=== PATIENT | male | born 1950 | race Caucasian/White ===

== ENCOUNTER 2016-07-27 15:58 | Emergency (ER) | payer OTHER ==
[2016-07-27 16:02] VITALS: O2SAT 96
[2016-07-27] MEDS ORDERED: HYDROmorphONE/DILAUDID 1 MG/ML SYR IVP ONE ×2 (16:30→17:15)
[2016-07-27 16:47] LABS: % IMMATURE GRANULYOCYTES 0.6 % (0.0-1.1); ABSOLUTE IMMATURE GRANULOCYTES 0.05 10^3/uL (0.00-0.10); ADD DIFF? NO; ADD MORPH? NO; ADD SCAN? NO; ATYPICAL LYMPHOCYTE FLAG 0 (0-99); FRAGMENT RBC FLAG 0 (0-99); HEMATOCRIT 44.9 % (40.0-51.0); HEMOGLOBIN 16.2 g/dL (13.7-17.5); LEFT SHIFT FLG 0 (0-99); LIPEMIA HEMOLYSIS FLAG 90 (0-99); MEAN CELL HEMOGLOBIN 29.6 pg (27.9-34.1); MEAN CELL HEMOGLOBIN CONCENTR. 36.1 g/dL (32.4-36.7); MEAN CELL VOLUME 81.9 fL (81.5-99.8); MEAN PLATELET VOLUME 10.3 fL (8.7-11.7); PLATELET CLUMPS FLAG 10 (0-99); PLATELET COUNT 210 10^3/uL (150-400); RED BLOOD CELL COUNT 5.48 10^6/uL (4.40-6.38); RED CELL DISTRIBUTION WIDTH 12.9 % (11.5-15.2)
[2016-07-27 16:54] LABS: ANION GAP 14 mEq/L (8-16); CALCIUM 10.2 mg/dL (8.5-10.4); CARBON DIOXIDE 21 mEq/l (22-31); CHLORIDE 100 mEq/L (97-110); CREATININE 0.8 mg/dL (0.7-1.3); GLOMERULAR FILTRATION RATE > 60; GLUCOSE 119 mg/dL (70-100); POTASSIUM 3.5 mEq/L (3.5-5.2); SODIUM 135 mEq/L (134-144)
[2016-07-27] MEDS ORDERED: KETOROLAC 15 MG/1 ML SDV IVP ONE (17:15)
[2016-07-27] MEDS ORDERED: DIAZEPAM 10 MG/2 ML SYR IVP ONE (17:59)
--- NOTE | 2016-07-27 19:11 | EDPHY ---
H & P Stated Complaint: l hip pain - Personal History Current Tetanus/Diphtheria Vaccine: Yes - Medical/Surgical History Hx Asthma: No Hx Chronic Respiratory Disease: No Hx Diabetes: No Hx Cardiac Disease: Yes Hx Renal Disease: No Hx Cirrhosis: No Hx Alcoholism: No Hx HIV/AIDS: No Hx Splenectomy or Spleen Trauma: No Other PMH: htn/quad byp[ass - Social History Smoking Status: Never smoked Time Seen by Provider: 07/27/16 16:16 HPI/ROS: Chief complaint: Left buttock pain History of present illness: This is a 66-year-old male who presents to the emergency department for left buttock pain. Patient reports the onset of symptoms over the last 1-2 days. Symptoms have been worsening. He initially treated with ibuprofen which helped but now pain is worsening. He denies specific precipitating factors such as trauma. He denies other associated signs or symptoms including no fevers, no abdominal pain, no nausea, vomiting or diarrhea, no urinary symptoms, no abnormal coolness or no paresthesias in the leg. Patient is concerned this could be related to his statin use. Review of systems: A 10 point review of systems was obtained and other than described above was negative (Berto Smith) - Physical Exam Exam: General Appearance: Alert, nontoxic. Eyes: Pupils equal and round no pallor or injection. ENT, Mouth: Mucous membranes moist. Respiratory: There are no retractions, lungs are clear to auscultation. Cardiovascular: Regular rate and rhythm. Posterior tibialis pulses 2+ bilaterally. Dorsalis pedis pulses 1+ on the left, 2+ on the right. Gastrointestinal: Abdomen is soft and nontender, no masses, bowel sounds normal. Neurological: Alert and oriented x4. Strength and sensation intact and symmetrical. Straight leg raise test is negative bilaterally. Patient ambulating well. Skin: Warm and dry, no rashes. Musculoskeletal: Neck is supple nontender. Spine is nontender to palpation along its entire length. The back is nontender. There is tenderness in the left buttock region in the region of the sciatic notch. I can reproduce his pain. Extremities are symmetrical, full range of motion. Psychiatric: Patient is oriented X 3, there is no agitation. (Berto Smith) Constitutional: Initial Vital Signs Temperature (C) 36.3 C 07/27/16 15:59 Heart Rate 99 07/27/16 15:59 Respiratory Rate 18 07/27/16 15:59 Blood Pressure 174/114 H 07/27/16 15:59 O2 Sat (%) 96 07/27/16 15:59 O2 Delivery Mode Room Air Allergies/Adverse Reactions: No Known Allergies Allergy (Verified 07/27/16 15:58) Home Medications: Medication Instructions Recorded Ambien CR 06/08/09 Aspirin 81mg 06/08/09 CAPTOPRIL 06/08/09 Hydrochlorothiazide 06/08/09 Lipitor 20 mg 06/08/09 Norvasc 5mg 06/08/09 Pepcid 06/08/09 Potassium Chloride 06/08/09 Terazosin Hcl 06/08/09 diphenhydrAMINE 06/08/09 Hydrocodone/APAP 5 [[place] 1 tab PO Q6H #10 tab 07/27/16 5/325 (*)] Medical Decision Making ED Course/Re-evaluation: Patient is discussed with my secondary supervising physician Dr. Zeinab Watkins. Patient presents to the emergency department for left buttock pain. Patient is nontoxic. His left leg is neurovascularly intact. Ultimately I believe this is a musculoskeletal issue. He is symptomatically treated with improvement of symptoms and is able to ambulate. Patient will be discharged home. Home care is discussed. He is asked to follow up with his primary care doctor for recheck. Strict return precautions are given. Patient voiced understanding and agreement with plan. (Berto Smith) The patient was evaluated and managed by the physician civil engineering assistant. I have reviewed this chart and I agree with the findings and plan of care as documented , as indicated by my signature. I am the secondary supervising physician. ( Zeinab Watkins) Differential Diagnosis: Included but not limited to muscle spasms, sciatica, lumbar sprain or strain, herniated intervertebral disc (Berto Smith) - Data Points Laboratory Results: Laboratory Results 07/27/16 16:10 07/27/16 16:10 Medications Given: Discontinued Medications Diazepam (Valium Injection) 5 mg IVP EDNOW ONE Stop: 07/27/16 18:00 Last Admin: 07/27/16 18:30 Dose: 5 mg Hydromorphone HCl (Dilaudid) 0.5 mg IVP EDNOW ONE Stop: 07/27/16 16:31 Last Admin: 07/27/16 16:50 Dose: 0.5 mg Hydromorphone HCl (Dilaudid) 0.5 mg IVP EDNOW ONE Stop: 07/27/16 17:16 Last Admin: 07/27/16 17:30 Dose: 0.5 mg Ketorolac Tromethamine (Toradol) 15 mg IVP EDNOW ONE Stop: 07/27/16 17:16 Last Admin: 07/27/16 17:30 Dose: 15 mg Departure - Departure Disposition: Home, Routine, Self-Care Clinical Impression: Low back pain Qualifiers: Chronicity: acute Back pain laterality: left Sciatica presence: with sciatica Sciatica laterality: sciatica of left side Qualified Code(s): M54.42 - Lumbago with sciatica, left side Condition: Good Instructions: Back Pain (ED) Additional Instructions: Follow-up with her primary care doctor in 1-2 days for recheck In regards to pain control see the following: Use ibuprofen [600] mg [3] times a day for the next 1-2 days for pain In addition You have been prescribed [[place]] for pain. [[place]] contains Tylenol, do not take extra Tylenol/acetaminophen/Apap with it. It is sedating. If symptoms worsen or new symptoms develop return to the emergency room for recheck Referrals: Tha Hood MD [Primary Care Provider] - As per Instructions Prescriptions: Hydrocodone/APAP 5/325 [[place] 5/325 (*)] 1 tab PO Q6H #10 tab
[2016-07-27 19:30] VITALS: BP 120/84; PULSE 84; RESP 16; TEMP 98.4
== END 2016-07-27 19:29 | disposition home or self-care (01) ==
DX: M54.42 Lumbago with sciatica, left side (principal); I10 Essential (primary) hypertension; Z79.82 Long term (current) use of aspirin
CPT/HCPCS: 96374; 96375; 96376; 99284; J1170; J1885

== ENCOUNTER → 2018-03-13 | Outpatient (CLI) | payer OTHER | LOC: BHFA 10:00 | PROVIDERS: ATTEND Internal Medicine Interventional Cardiology | DX: I25.10 Atherosclerotic heart disease of native coronary artery without angina pectoris (principal); E78.5 Hyperlipidemia, unspecified; E78.00 Pure hypercholesterolemia, unspecified ==